=== PATIENT | female | born 1940 | race Caucasian/White ===

== ENCOUNTER 2023-03-31 10:58 | Emergency (ER) | payer MEDICARE, SELFPAY ==
[2023-03-31 11:00] VITALS: BP 152/65; PULSE 92; RESP 30; TEMP 36.1; O2SAT 97; BMI 21.9
--- NOTE | 2023-03-31 11:04 | RAD_ITS ---
INDICATION: Injury/Pain EXAMINATION/TECHNIQUE: X-RAY - RIGHT XR Elbow Min 3 Views COMPARISON: None. FINDINGS: SOFT TISSUES: There is diffuse soft tissue swelling. No radiopaque foreign body. BONES/JOINTS: There is a fracture of the proximal ulnar diaphysis with lateral displacement of the distal ulna. There is a radial head fracture as well. No sclerotic or destructive changes observed. RAD/Elbow min 3 Views IMPRESSION: Proximal ulnar fracture. Radial head fracture. Electronically Signed: Yamilka Cheung MD at 12:22 EDT ,
--- NOTE | 2023-03-31 11:05 | CT_ITS ---
INDICATION: head trauma and LOC EXAMINATION: CT BRAIN - CT Head or Brain W/O Contrast Injection TECHNIQUE: Multiple axial images were obtained of the head without intravenous contrast. A radiation dose optimization technique was used for this scan. IV Contrast dosage and agent: None. RADIATION DOSAGE (If Supplied By Facility): CTDIvol = ( 44.99 ) mGy, DLP = ( 829.85 ) mGycm COMPARISON: FINDINGS: BRAIN PARENCHYMA: No intra- or extra-axial hemorrhage. There are patchy areas of low attenuation within the white matter of the cerebral hemispheres, a nonspecific finding most commonly reflecting small vessel ischemia. No evidence of acute infarct. No intracranial mass or mass effect. There is preservation of the rodriguez/white matter interface. Posterior fossa structures are unremarkable. CSF SPACES: Appropriate for age. No hydrocephalus. Basal cisterns are patent. CALVARIUM, SKULL BASE, PARANASAL SINUSES AND MASTOID AIR CELLS: Clear. There is partial loss of the left mastoid air cells, may be postsurgical. No discrete lytic or blastic abnormalities. ORBITS: Both globes, extraocular muscles, optic nerves and retrobulbar fat appear unremarkable. ASPECTS Score for Acute Strokes: 10 CT/Brain/Head without Contrast IMPRESSION: No acute intracranial process. Small vessel ischemia. Electronically Signed: Yamilka Cheung MD at 11:50 EDT ,
--- NOTE | 2023-03-31 11:05 | EX.ED.DYSGE1 ---
HPI History of Present Illness Chief Complaint: Syncope Detail of Chief Complaint: Syncope with injury to head/face and right elbow Informant: patient, family and EMS Onset/Context/Timing Onset: Hours Context: Sudden Onset Timing: Intermittent Quality: Syncopal episode with injury Location: Proximity of right brow and right elbow Current Severity: Mild Maximum Severity: Severe Worsened by: Documented in the HPI narrative Relieved by: Nothing Associated Symptoms Associated Symptoms: Headache Narrative Narrative: Patient is an 82-year-old woman with history of hypertension, hypercholesterolemia who presents by ambulance after syncopal episode. She is very hard of hearing. She complains of little big headache . She complains of significant right elbow pain. She informed me that she normally wears glasses and that her daughter has her glasses. She also told me that she is hard of hearing. Patient denies neck pain. Patient denies chest pain or shortness of breath. Patient denies abdominal pain or low back pain. Patient denies pain in her left upper extremity or her lower extremities. Tetanus is unknown. Patient has no medication allergies. Spoke with the son who is POA. He [place]. He informed her of her medications and other pertinent information needed by the nurse. Her daughter is very anxious. She states they were at the store regular checkout. Her mother told her she had to go the bathroom. She states the next thing she knew there was a commotion in her mother who was on the ground unresponsive. Patient does not recall what happened. Patient denies history of peptic ulcer disease no history given history of black or maroon-colored stool. Prior similar symptoms: Yes (Partially 1 year ago per son and had significant knee injury) Recent Illness/Hospitalization: No PFSH PFSH Medical History (Updated 03/31/23 @ 12:[address] Allan Hammer MD) Age related osteoporosis Hx of breast cancer Hyperlipidemia Hypertension Home Medications Fosamax 03/31/23 [History Last Taken Unknown] Reglan 03/31/23 [History Last Taken Unknown] lisinopril 03/31/23 [History Last Taken Unknown] oxycodone-acetaminophen 5 mg-325 mg tablet 1 tab PO Q6H PRN PRN pain 5 days #20 TABLETS 03/31/23 [Rx Last Taken Unknown] Allergy/AdvReac Type Severity Reaction Status Date / Time No Known Allergies Allergy Verified 03/31/23 11:05 Surgical History unable to obtain unable to obtain Social History (Updated 03/31/23 @ 11:[address] Allan Hammer MD) household members: other Smoking Status: Never smoker substance use type: does not use ROS ROS ED Constitutional Constitutional ED: Denies chills, fever(s), subjective or sweats Eyes Eyes: Reports blurry vision bilateral (Patient does not have her glasses); Denies change in vision or diplopia ENT ENT ED: Denies ear pain, rhinorrhea or sore throat Cardiovascular Cardiovascular: Denies chest pain or palpitations Respiratory/Chest Respiratory/Chest: Denies cough, dyspnea or dyspnea on exertion Gastrointestinal Gastrointestinal: Denies abdominal pain, nausea or vomiting Genitourinary Genitourinary ED: Denies dysuria, hematuria or urinary frequency Musculoskeletal Musculoskeletal: Denies arthralgias, back pain, myalgias or neck pain Neurologic Neurologic: Reports headache(s); Denies paresthesias or weakness Psychiatric Psychiatric: Denies anxiety or depression Endocrine Endocrinology: Denies cold intolerance or heat intolerance Hematologic/Lymphatic Hematologic/Lymphatic: Reports systems reviewed and no addt'l complaints, except as documented EXAM Physical Exam Const Vital Signs: 03/31/23 11:00 Temperature 96.9 F L Temperature Source Temporal Pulse Rate 92 Respiratory Rate 30 H Blood Pressure 152/65 H Blood Pressure Mean 94 Pulse Ox 97 Oxygen Delivery Method Room Air Positive well nourished and well developed Constitutional Narrative: Patient has significant hearing impairment and spite of having her hearing aids. Patient grimaces when she was transferred from EMS cot to examination cot because of elbow pain. General Appearance ED: well developed and NAD; Negative for cyanotic or diaphoretic HEENT Reports TM's clear and moist mucous membranes HEENT Narrative: Patient has a laceration superior medial aspect of right brow. There is no palpable oppression. Ears are normal. No hemotympanum. No septal deviation hematoma. No findings suggestive of basilar skull fracture. There is no trauma to the frontal parietal or occipital portion of the head. There is no evidence of dental trauma. There is no TMJ tenderness. There is no evidence of malocclusion. trauma Tympanic Membrane ED: Yes TM's clear Eyes PERRL and EOMs intact bilaterally Eyes Narrative: There is no subconjunctival hemorrhage noted. General Eye ED: Negative for pale conjunctiva or scleral icterus Neck no lymphadenopathy, supple and no JVD Neck Narrative: Full active range of motion with no midline posterior neck pain. General: Negative for tenderness Chest Wall inspection of chest normal and palpation of chest normal Resp normal respiratory effort and clear to auscultation bilaterally Cardio regular rate, regular rhythm, S1 normal heart sound, S2 normal heart sound and no murmurs GI normal to inspection, nondistended, normoactive bowel sounds, non-tender, non-distended and no masses; Negative for hepatosplenomegaly GI Narrative: There is no pain outpatient of the right or left iliac wing, pubic symphysis or the right or left ischial facility. Back/Spine no CVA tenderness Cervical Spine: Negative for cervical spine tenderness Thoracic Spine / Upper Back: Negative for thoracic spinal tenderness Lumbar Spine / Lower Back: Negative for lumbar spinal tenderness Extremity Extremity Narrative: There is significant swelling over the olecranon process of the right elbow. There is minimal discomfort over the lateral malleolus and medial malleolus. There appears to be discomfort over the radial head. Unable to supinate or pronate. Median, radial and ulnar function intact. Radial pulses palpable. There is no pain ovation over the distal radius or ulna, carpal bones, metacarpal bones or phalanges. There is no pain the patient with the proximal humerus. There is an abrasion over the MCP joint of the right little finger. The extensor and flexor mechanism intact. Neuro oriented x3, CN's II-XII intact bilaterally and no sensory deficits noted Neuro Narrative: There is no clonus or Babinski sign noted. Sensorium / Orientation: alert Motor Exam: strength 5/5 throughout Psych mental status grossly normal Skin No no wounds and No skin turgor normal Skin Narrative: Facial laceration as previously described General Skin Exam: Negative for elasticity normal or jaundice MDM MDM MDM Narrative Medical decision making narrative: Patient with syncopal sewed as she was walking to the restroom. Suspect this is vasovagal. Will obtain EKG to assess for acute cardiac ischemia. CBC to assess H&H. BMP to assess BUN/creatinine ratio and electrolytes. CT of the head was obtained that she complained of headache with head trauma and the fact that he is over the age of 67 per the [place] CT head rule. C-spine was not obtained since she has no tenderness and full active range of motion. X-ray of the elbow was obtained because of apparent deformity and concern for fracture of the olecranon process. Tetanus was updated. She was medicated with morphine for her pain. Lab Data Attestation: I reviewed the patient's lab results. Lab results narrative: CBC is unremarkable. BMP is unremarkable. Glucose is 125 with a normal CO2 anion gap. Labs: Laboratory Results - last 24 hr 03/31/23 03/31/23 11:08 11:08 WBC 9.0 RBC 4.79 Hgb 14.3 Hct 44.3 MCV 92.5 MCH 29.9 MCHC 32.3 RDW Std Deviation 44.4 H RDW Coeff of Mindy 13.1 Plt Count 338 MPV 9.7 Immature Gran % (Auto) 0.300 Neut % (Auto) 59.3 Lymph % (Auto) 31.0 Grainger % (Auto) 8.4 Eos % (Auto) 0.7 Baso % (Auto) 0.3 Absolute Neuts (auto) 5.3 Absolute Lymphs (auto) 2.78 Nucleated RBC % 0 Sodium 140 Potassium 4.3 Chloride 104 Carbon Dioxide 24.0 Anion Gap 12 BUN 16 Creatinine 1.00 Estim Creat Clear Calc 37.12 Est GFR (MDRD) Af Amer 69 Est GFR (MDRD) Non-Af 57 L BUN/Creatinine Ratio 16.0 Glucose 125 H Calcium 10.6 H Radiography Chest X-Ray - ED: Read by ED Physician (Three-view x-ray of the elbow reveals a displaced fracture of the proximal ulna. This is extra-articular.) Diagnostic Testing: Clinical Impression(s) from Imaging Studies Elbow X-Ray 03/31/23 11:04 IMPRESSION: Proximal ulnar fracture. Radial head fracture. Electronically Signed: Yamilka Cheung MD at 12:22 EDT , Brain CT 03/31/23 11:05 IMPRESSION: No acute intracranial process. Small vessel ischemia. Electronically Signed: Yamilka Cheung MD at 11:50 EDT , EKG Initial EKG: Attestation: I personally reviewed and interpreted this EKG as follows: Interpretation: Sinus Rhythm (Rate is 88. EKG is normal. NE interval is 202 ms. Cures duration 86 ms. QRS durations 168 ms. [place] is normal) Management Discussion w/another healthcare provider: Thoracic Medicine Specialist (Spoke with Dr. Galan at 1152. He will gladly have patient follow-up as outpatient. He recommended long-arm splint in significant extension and to pad the olecranon process well.) Treatment and Re-Evaluation :: Patient was scheduled to return to [place] since she lives with her son. He was informed of her injuries. He states he has a good friend's orthopedic surgeon and will contact him tomorrow to make appropriate arrangements to have her elbow fracture repaired in [facility] where she resides. Procedures Upper Extremity Splints Upper Extremity Splint: Plaster and Long arm Splint Fabrication: Fabricated Location: Right Discharge Plan Triage Chief Complaint: Syncope ED Provider: Allan Hammer Dx/Rx/DC Orders Clinical Impression: Syncope and collapse, Closed head injury, Displaced fracture of olecranon process of right ulna without intra-articular extension, Facial laceration Instructions: ED Head Injury (Adult), ED FACIAL LACERATION Suture Tape, ED Laceration Minimize Scars, ED Fainting, Uncertain Cause Prescriptions: New oxycodone-acetaminophen [oxycodone-acetaminophen] 5-325 mg tablet 1 tab PO Q6H PRN PRN (Reason: pain) 5 Days Qty: 20 0RF No Action Fosamax Reglan lisinopril Primary Care Provider: NIYAH LUIS Referrals: [facility] Doctor,Out of [Non-Staff] - 3-5 Days suture removal Activity Restrictions/Additional Instructions: Contact orthopedist since the elbow fracture will require surgical repair. Take medication as prescribed for pain Apply ice 6-10 times a day Keep splint absolutely clean and dry Disposition Disposition: Home, Self Care
[2023-03-31] MEDS: Diphth,Pertuss(Acell),Tet Vac 0.5 ML Vial IM (11:14)
[2023-03-31] MEDS: Ondansetron 4 MG/2 ML Vial IV (11:14)
[2023-03-31] MEDS: Morphine 4 MG/ML Syringe IV (11:15)
[2023-03-31 11:16] LABS: Absolute Lymphocyte Count 2.78 X10^3/uL (0.83-4.51); Absolute Neutrophil Count 5.3 X10^3/uL (2.0-7.7); Basophil# 0.03 X10^3/uL; Basophil% 0.3 % (0-1); Eosinophil# 0.06 X10^3/uL; Eosinophils% 0.7 % (0-5); Hematocrit 44.3 % (37-47); Hemoglobin 14.3 g/dL (12.0-15.0); Lymphocyte # 2.78 X10^3/ul (0.83-4.51); Mean Corp Hgb Conc 32.3 g/dL (32-36); Mean Corpuscular Hgb 29.9 pg (27.0-32.0); Mean Corpuscular Volume 92.5 fL (81-99); Mean Platelet Vol. 9.7 fl (6.2-12.0); Monocyte# 0.75 X10^3/uL; Monocyte% 8.4 % (0-10); NRBC Flagged by Analyzer 0 % (0-5); Neutrophil # 5.32 X10^3/uL (2.7-7.7); Neutrophil % 59.3 % (47-70); Platelet Count 338 K/mm3 (150-450); RBC Distribution Width CV 13.1 % (11.6-14.6); RBC Distribution Width SD 44.4 fl (35.1-43.9); Red Blood Count 4.79 M/mm3 (4.2-5.4)
[2023-03-31 11:28] LABS: Anion Gap 12 (5-15); BUN 16 mg/dL (7-18); Calcium,Total 10.6 mg/dL (8.5-10.1); Chloride 104 mmol/L (98-107); EST Glomerular Filtration Rate 57 mL/min (>60); Est Glom Filt Rate - Afr Amer 69 mL/min (>60); Estimated Creatinine Clearance 37.12 ml/min; Glucose 125 mg/dL (74-106); Potassium 4.3 mmol/L (3.5-5.1); Sodium Level 140 mmol/L (136-145)
== END 2023-03-31 15:19 | disposition home or self-care (01) ==
PROVIDERS: Emergency Provider Emergency Medicine; Visit Provider Emergency Medicine
DX: R55 Syncope and collapse (principal); S09.90XA Unspecified injury of head, initial encounter; S52.021A Displaced fracture of olecranon process without intraarticular extension of right ulna, initial encounter for closed fracture; S01.81XA Laceration without foreign body of other part of head, initial encounter; X58.XXXA Exposure to other specified factors, initial encounter
CPT/HCPCS: 29105; 29405; 70450; 73080; 80048; 85025; 90715; 93005; 96374; 96375; 99285; A4216; J2405